=== PATIENT | male | born 1955 | race Caucasian/White ===

== ENCOUNTER → 2021-07-29 | Outpatient (CLI) | payer OTHER ==
[~2021-07-29] MED LIST: ACCUPRIL20 MG PO; CRESTOR5 MG PO; ECOTRIN81 MG PO; FISH OIL 1,0001 EACH PO; LASIX40 MG PO; NORCO 10-325 T1 EACH PO; OTC NASAL SPRAY; PROTONIX40 MG PO; VITAMIN C1000 MG PO; VITAMIN D32000 UNI1 PO; ZYLOPRIM 300 M300 MG PO
== END ==
LOC: EXRD 14:04
DX: M54.2 Cervicalgia (principal); R22.0 Localized swelling, mass and lump, head
CPT/HCPCS: 76536

== ENCOUNTER → 2022-03-02 | Outpatient (CLI) | payer OTHER | LOC: HEART 5 02-26 11:30 | DX: R06.02 Shortness of breath (principal) ==